=== PATIENT | female | born 1960 | race Caucasian/White ===

== ENCOUNTER 2017-02-02 20:08 | Emergency (ER) | payer MEDICAID, OTHER ==
[~2017-02-02] VITALS: Ht 167.6 cm; Wt 77.5 kg
[~2017-02-02 20:08] MED LIST: DIPH25CA6; HYDR2TAB3
[2017-02-02 20:59] VITALS: Ht 167.6 cm; Wt 77.5 kg
--- NOTE | 2017-02-02 22:39 | ERA ---
ER Documentation Chief Complaint Date/Time DATE: 02/02/17 TIME: 22:39 Chief Complaint L flank pain hx of kidney stones HPI The patient is a 56-year-old female, presenting with intermittent left flank pain for the last 2 months, worse tonight, the pain is 8/10, no aggravating or relieving factors. She has already went to the ER 3 times for the last 2 months. She is awaiting to see the urologist Dr. Mendiola on March 08. She denies fever, chills, neck pain, chest pain, nausea, vomiting , dyspnea, dysuria, diarrhea, constipation. She does smokes and drinks socially Past medical history: History of kidney stone, hypothyroidism Past surgical history: Appendectomy, left ovarian cyst, cholecystectomy, left ureteral stones retrieval ROS All systems reviewed and are negative except as per history of present illness. Medications Home Meds Active Scripts Hydrocodone/Acetaminophen ([place] 5-325 Tablet) 1 Each Tablet, 1 EACH PO Q6, #10 TAB Prov:NONA BRUSH MD 02/03/17 Reported Medications Diphenhydramine Hcl (Benadryl) 25 Mg Cap 01/19/10 Hydromorphone Hcl* (Hydromorphone Hcl*) 2 Mg Tablet 01/19/10 Allergies Allergies: Coded Allergies: No Known Allergies (Verified Allergy, Mild, 01/19/10) PMhx/Soc History of Surgery: No Hx Neurological Disorder: No Hx Respiratory Disorders: No Hx Cardiac Disorders: No Hx Miscellaneous Medical Probl: Yes (KIDNEY STONES. HYPER/ HYPOTHYROIDISM) Hx Alcohol Use: No Hx Substance Use: No Hx Tobacco Use: No Smoking Status: Never smoker Physical Exam Vitals Vital Signs Date Time Temp Pulse Resp B/P Pulse Ox O2 Delivery O2 Flow Rate FiO2 02/03/17 01:48 98.6 60 16 114/71 99 Room Air 02/02/17 20:59 99.1 75 24 122/77 98 Physical Exam Const: No acute distress. Head: Atraumatic. Eyes: Normal Conjunctiva. ENT: Normal External Ears, Nose and Mouth. Neck: Full range of motion. No meningismus. Resp: Clear to auscultation bilaterally. Cardio: Regular rate and rhythm, no murmurs. Abd: Soft, non distended, normal bowel sounds, mild left flank and left CVA tenderness, no rigidity, rebound tenderness Skin: No petechiae or rashes. Back: No midline or flank tenderness. Ext: No cyanosis, or edema. Neur: Awake and alert. No focal deficit Psych: Normal Mood and Affect. Result Diagram: 02/02/171 02/02/17 2311 Results 24 hrs Laboratory Tests Test 02/02/17 23:11 02/02/17 23:18 White Blood Count 6.110^3/ul Red Blood Count 5.0110^6/ul Hemoglobin 14.2g/dl Hematocrit 42.5% Mean Corpuscular Volume 84.8fl Mean Corpuscular Hemoglobin 28.3pg Mean Corpuscular Hemoglobin Concent 33.4g/dl Red Cell Distribution Width 13.9% Platelet Count 17814^3/UL Mean Platelet Volume 10.2fl Neutrophils % 39.4% Lymphocytes % 47.5% Monocytes % 7.9% Eosinophils % 3.8% Basophils % 1.1% Nucleated Red Blood Cells % 0.0/100WBC Neutrophils # 2.410^3/ul Lymphocytes # 2.910^3/ul Monocytes # 0.510^3/ul Eosinophils # 0.210^3/ul Basophils # 0.110^3/ul Nucleated Red Blood Cells # 0.010^3/ul Sodium Level 141mmol/L Potassium Level 4.0mmol/L Chloride Level 105mmol/L Carbon Dioxide Level 28mmol/L Anion Gap 12 Blood Urea Nitrogen 14mg/dl Creatinine 0.64mg/dl Glucose Level 104mg/dl Calcium Level 9.8mg/dl Total Bilirubin 0.1mg/dl Direct Bilirubin 0.00mg/dl Indirect Bilirubin 0.1mg/dl Aspartate Amino Transf (AST/SGOT) 37IU/L Alanine Aminotransferase (ALT/SGPT) 45IU/L Alkaline Phosphatase 125IU/L Total Protein 7.8g/dl Albumin 4.6g/dl Globulin 3.20g/dl Albumin/Globulin Ratio 1.43 Lipase 322U/L Bedside Urine pH (LAB) 5.5 Bedside Urine Protein (LAB) Negative Bedside Urine Glucose (UA) Negative Bedside Urine Ketones (LAB) Negative Bedside Urine Blood Negative Bedside Urine Nitrite (LAB) Negative Bedside Urine Leukocyte Esterase (L Negative Current Medications Medications (Trade) Dose Ordered Sig/Serjio Route PRN Reason Start Time Stop Time Status Last Admin Dose Admin Sodium Chloride 1,000 ml @ 1,000 mls/hr Q1H STAT IV 02/02/17 22:49 02/02/17 23:48 DC 02/02/17 23:43 Sodium Chloride (NS) 1,000 ml @ 1,000 mls/hr Q1H ONCE IV 02/02/17 23:00 02/02/17 23:59 DC 02/02/17 23:43 Ketorolac Tromethamine (Toradol) 30 mg ONCE STAT IV 02/02/17 22:49 02/02/17 22:51 DC 02/02/17 23:43 Morphine Sulfate (morphine) 2 mg ONCE ONCE IV 02/02/17 23:00 02/02/17 23:01 DC 02/02/17 23:27 Ondansetron HCl (Zofran Inj) 4 mg ONCE STAT IV 02/02/17 22:49 02/02/17 22:51 DC 02/02/17 23:21 Morphine Sulfate (morphine) 4 mg ONCE STAT IV 02/03/17 01:23 02/03/17 01:24 DC 02/03/17 01:27 Ondansetron HCl (Zofran Inj) 4 mg ONCE STAT IV 02/03/17 01:23 02/03/17 01:24 DC 02/03/17 01:27 Procedures/[place] [address] Radiology Main Line: [phone] DIAGNOSTIC IMAGING REPORT Patient: RAO MALDONADO : 1960 Age: 56 Sex: F MR #: [id number] DOS: 02/02/17 2249 Ordering MD: NONA BRUSH MD Location: [facility] Room/Bed: PROCEDURE: CT Abdomen and pelvis without contrast. CLINICAL INDICATION: Abdominal pain. TECHNIQUE: CT scan of the abdomen and pelvis was performed on a multi- detector high-resolution CT scanner. Contiguous axial images were obtained from the lung bases to the ischial tuberosities without intravenous contrast. Coronal and sagittal reformatted images were also obtained. Images were reviewed on the PACS workstation. One or more of the following dose reduction techniques were used: - Automated exposure control. - Adjustment of the mA and/or kV according to patient size. - Use of iterative reconstruction technique. Exam CTD/vol = 16.11 mGy. Total exam DLP = 950.28 mGy-cm. COMPARISON: None. FINDINGS: Evaluation of the lung bases demonstrates mild bibasilar atelectasis. Abdomen: The liver is normal in size. There is no focal mass or dilatation of the biliary tree. The patient is status post cholecystectomy. The spleen, pancreas and bilateral adrenal glands are within normal limits. Bilateral kidneys are normal in size with no contour deforming mass identified. There are multiple 1-2 mm renal calculi bilaterally. There is no radiopaque ureteral calculus identified. There is no hydronephrosis or hydroureter. There is no retroperitoneal adenopathy. The abdominal aorta is of normal caliber with mild scattered atherosclerotic calcifications. There is a small infraumbilical hernia containing fat. There is no bowel obstruction or free air. The appendix is not visualized. There is no diverticulosis or diverticulitis. There is no ascites. Pelvis: The bladder is unremarkable. The uterus and adnexa are within normal limits. There is no significant pelvic adenopathy or free fluid. Evaluation of the osseous structures demonstrates no suspicious lytic or blastic lesion. IMPRESSION: No acute abnormality identified within the abdomen and pelvis. Bilateral nonobstructing renal calculi. Status post cholecystectomy. Mild vascular calcifications reflective of atherosclerosis. Small infraumbilical hernia containing fat. .Eloy Thorne MD, MD Date Time Electronically viewed and signed by .Eloy Thorne MD, on 02/03/2017 00:45 .T/ CC: NONA BRUSH MD MEDICAL MAKING DECISION: The patient is a 56-year-old female, presenting with acute abdominal pain, most likely due to renal colic. She was treated with 1 L normal saline for clinical dehydration, Toradol 30 mg IV, morphine 2 mg IV and morphine 4 mg IV for pain and Zofran formula IV 2 for nausea with good response The differential diagnoses considered include but are not limited to cholelithiasis, cholecystitis, cystitis, pancreatitis, hepatitis, gastritis, peptic ulcer disease, gastric ulcer, appendicitis, diverticulitis, cholangitis, choledocholithiasis, partial small bowel obstruction. Departure Diagnosis: Primary Impression: Abdominal pain Additional Impression: Renal colic on left side Condition: Good Comments She was discharged with [place] and advised to follow-up with her urologist in 1- 2 days, sooner if needed and return if any concern NONA BRUSH MD Feb 02, 2017 22:39
[2017-02-02] MEDS ORDERED: SOD CHLORIDE 0.9% 1,000 ML IV STA (22:49)
[2017-02-02] MEDS ORDERED: ONDANSETRON 4 MG INJ IV STA (22:49)
[2017-02-02] MEDS ORDERED: KETOROLAC 30 MG INJ IV STA (22:49)
[2017-02-02] MEDS ORDERED: morphine 2 MG INJ IV ONE (23:00)
[2017-02-02] MEDS ORDERED: SOD CHLORIDE 0.9% 1,000 ML IV ONE (23:00)
[2017-02-02 23:17] LABS: URINE BLOOD (Dip) POC Negative (NEGATIVE)
[2017-02-02 23:24] LABS: ADD SCAN DIFF NO
[2017-02-02 23:28] LABS: BASOPHIL # 0.1 10^3/ul (0.0-0.1); BASOPHILS % 1.1 % (0.0-2.0); EOSINOPHILS # 0.2 10^3/ul (0.0-0.5); EOSINOPHILS % 3.8 % (0.0-7.0); HEMATOCRIT 42.5 % (37.0-47.0); HEMOGLOBIN 14.2 g/dl (12.0-16.0); LYMPHOCYTES # 2.9 10^3/ul (0.8-2.9); LYMPHOCYTES % 47.5 % (15.0-51.0); MEAN CORPUSCULAR HEMOGLOBIN 28.3 pg (29.0-33.0); MEAN CORPUSCULAR HGB CONC 33.4 g/dl (32.0-37.0); MEAN CORPUSCULAR VOLUME 84.8 fl (82.0-101.0); MEAN PLATELET VOLUME 10.2 fl (7.4-10.4); MONOCYTE # 0.5 10^3/ul (0.3-0.9); MONOCYTES % 7.9 % (0.0-11.0); NEUTROPHIL # 2.4 10^3/ul (1.6-7.5); NEUTROPHILS % 39.4 % (39.0-77.0); PLATELET COUNT 366 10^3/UL (140-415); RED BLOOD COUNT 5.01 10^6/ul (4.20-5.40); RED CELL DISTRIBUTION WIDTH 13.9 % (11.5-14.5); WHITE BLOOD COUNT 6.1 10^3/ul (4.8-10.8)
[2017-02-03 00:03] LABS: ALBUMIN 4.6 g/dl (3.3-4.9); ALBUMIN/GLOBULIN RATIO 1.43; BILIRUBIN,INDIRECT 0.1 mg/dl (0-1.1); BILIRUBIN,TOTAL 0.1 mg/dl (0.2-1.3); CALCIUM 9.8 mg/dl (8.4-10.2); CREATININE 0.64 mg/dl (0.44-1.00); TOTAL PROTEIN 7.8 g/dl (6.1-8.1)
--- NOTE | 2017-02-03 00:45 | RADRPT ---
PROCEDURE: CT Abdomen and pelvis without contrast. CLINICAL INDICATION: Abdominal pain. TECHNIQUE: CT scan of the abdomen and pelvis was performed on a multi-detector high-resolution CT scanner. Contiguous axial images were obtained from the lung bases to the ischial tuberosities wit hout intravenous contrast. Coronal and sagittal reformatted images were also obtained. Images were reviewed on the PACS workstation. One or more of the following dose reduction techniques were used: - Automated exposure control. - Adjustment of the mA and/or kV according to patient size. - Use of iterative reconstruction technique. Exam CTD/vol = 16.11 mGy. Total exam DLP = 950.28 mGy-cm. COMPARISON: None. FINDINGS: Evaluation of the lung bases demonstrates mild bibasilar atelectasis. Abdomen: The liver is normal in size. There is no focal mass or dilatation of the biliary tree. T he patient is status post cholecystectomy. The spleen, pancreas and bilateral adrenal glands are wi thin normal limits. Bilateral kidneys are normal in size with no contour deforming mass identified. There are multiple 1-2 mm renal calculi bilaterally. There is no radiopaque ureteral calculus arielle ntified. There is no hydronephrosis or hydroureter. There is no retroperitoneal adenopathy. The a bdominal aorta is of normal caliber with mild scattered atherosclerotic calcifications. There is a small infraumbilical hernia containing fat. There is no bowel obstruction or free air. The appendix is not visualized. There is no diverticulosis or diverticulitis. There is no ascites. Pelvis: The bladder is unremarkable. The uterus and adnexa are within normal limits. There is no significant pelvic adenopathy or free fluid. Evaluation of the osseous structures demonstrates no suspicious lytic or blastic lesion. IMPRESSION: No acute abnormality identified within the abdomen and pelvis. Bilateral nonobstructing renal calculi. Status post cholecystectomy. Mild vascular calcifications reflective of atherosclerosis. Small infraumbilical hernia containing fat. .Eloy Thorne MD, MD Date Time Electronically viewed and signed by .Eloy Thorne MD, MD on 02/03/2017 00:45 .T/
[2017-02-03] MEDS ORDERED: HYDR-906 PO (01:07)
[2017-02-03] MEDS ORDERED: morphine 4 MG/ML VIAL IV STA (01:23)
[2017-02-03] MEDS ORDERED: ONDANSETRON 4 MG INJ IV STA (01:23)
[2017-02-03 01:48] VITALS: BP 114/71; PULSE 60; RESP 16; TEMP 98.6
== END 2017-02-03 01:49 | disposition home or self-care (01) ==
LOC: FTE 20:08
DX: N23 Unspecified renal colic (principal); E03.9 Hypothyroidism, unspecified
CPT/HCPCS: 74176; 80053; 81003; 83690; 85025; J1885; J2270; J2405; J7030; 36415; 96374; 96375; 96376

== ENCOUNTER 2017-02-21 08:56 | Day surgery (SDC) | payer OTHER ==
[~2017-02-21] VITALS: Ht 160 cm; Wt 78.0 kg
[~2017-02-21 08:56] MED LIST changes: +HYDR-906 PO
[2017-02-21] MEDS ORDERED: LEVO88TA42 PO (09:21)
--- NOTE | 2017-02-21 09:40 | RADRPT ---
PROCEDURE: Chest Radiograph. CLINICAL INDICATION: Preop TECHNIQUE: Single frontal chest radiograph. COMPARISON: None available FINDINGS: The cardiomediastinal silhouette is within normal limits. No infiltrate or effusion is seen. Th e bones are intact. IMPRESSION: 1. Unremarkable chest radiograph. RPTAT: KK .Jose Mack MD, MD Date Time Electronically viewed and signed by .Jose Mack MD, on 02/21/2017 09:39 .B/
[2017-02-21 10:07] VITALS: Ht 160 cm; Wt 78.0 kg
[2017-02-21 10:16] LABS: ADD SCAN DIFF NO
[2017-02-21 10:17] VITALS: BP 108/69; PULSE 68; RESP 16
[2017-02-21 10:21] LABS: BASOPHIL # 0.1 10^3/ul (0.0-0.1); BASOPHILS % 1.1 % (0.0-2.0); EOSINOPHILS # 0.2 10^3/ul (0.0-0.5); EOSINOPHILS % 3.5 % (0.0-7.0); HEMATOCRIT 40.8 % (37.0-47.0); HEMOGLOBIN 13.4 g/dl (12.0-16.0); LYMPHOCYTES # 1.9 10^3/ul (0.8-2.9); LYMPHOCYTES % 41.4 % (15.0-51.0); MEAN CORPUSCULAR HGB CONC 32.8 g/dl (32.0-37.0); MEAN CORPUSCULAR VOLUME 85.4 fl (82.0-101.0); MEAN PLATELET VOLUME 10.6 fl (7.4-10.4); MONOCYTE # 0.4 10^3/ul (0.3-0.9); MONOCYTES % 8.7 % (0.0-11.0); NEUTROPHIL # 2.1 10^3/ul (1.6-7.5); NEUTROPHILS % 44.9 % (39.0-77.0); PLATELET COUNT 324 10^3/UL (140-415); RED BLOOD COUNT 4.78 10^6/ul (4.20-5.40); RED CELL DISTRIBUTION WIDTH 13.4 % (11.5-14.5); WHITE BLOOD COUNT 4.6 10^3/ul (4.8-10.8)
[2017-02-21 10:39] LABS: ALBUMIN 4.3 g/dl (3.3-4.9); ALBUMIN/GLOBULIN RATIO 1.53; BILIRUBIN,INDIRECT 0.1 mg/dl (0-1.1); BILIRUBIN,TOTAL 0.1 mg/dl (0.2-1.3); CALCIUM 9.7 mg/dl (8.4-10.2); CREATININE 0.64 mg/dl (0.44-1.00); POTASSIUM 4.2 mmol/L (3.5-5.1); TOTAL PROTEIN 7.1 g/dl (6.1-8.1)
[2017-02-21 10:41] LABS: INR 0.86; PROTIME 11.7 Sec (12.2-14.2); PT RATIO 0.9
[2017-02-21 10:42] LABS: PARTIAL THROMBOPLASTIN TIME 27.5 Sec (25.0-35.0)
[2017-02-21] MEDS ORDERED: PROPOFOL 20 ML ONE (12:31)
[2017-02-21] MEDS ORDERED: FENTAnyl 50 MCG/ML VIAL ONE (12:32)
[2017-02-21] MEDS ORDERED: MIDAZOLAM 1 MG/ML 2 ML INJ ONE (12:32)
--- NOTE | 2017-02-21 13:38 | HP ---
DATE OF ADMISSION: 02/21/2017 HISTORY OF PRESENT ILLNESS: Estrella Kennedy is a 56-year-old female who presents today for left r etrograde pyelogram, possible left ureteroscopy, ureteroscopic stone extraction with endoscopic farideh ium laser lithotripsy and insertion of left ureteral stent. The patient has been noted to be having debilitating left renal colic. On 12/06/2016, she had a CT scan with intravenous contrast, demonst rating normal upper tracts. Two weeks later on 12/2013, without contrast, she was noted to have mil d left hydronephrosis secondary to a punctate stone in the mid to distal ureter and on review, this was additionally noted on the first CT scan in her proximal ureter. Due to persistence of pain, she then had a third CT scan on 01/04/2017, which did not demonstrate any stone. In light of the patie nt having a large amount of unremitting pain, she now presents for cystoscopy, left retrograde pyelo gram, possible left ureteroscopy, possible removal of stone with endoscopic holmium laser lithotrips y and insertion of stent. In addition, the patient has had urinary tract infections. Follow up uri nary cultures no significant growth. PAST MEDICAL HISTORY: Recurrent urinary tract infections, nephrolithiasis. SOCIAL HISTORY: The patient is a light smoker, which she started in 1989. PHYSICAL EXAMINATION: VITAL SIGNS: Stable, afebrile. LUNGS: Equal breath sounds bilaterally. HEART: Regular rate and rhythm. ABDOMEN: Positive left-sided abdominal pain. Left CVA tenderness. IMPRESSION: Left in renal colic, rule out persistence of ureteral stone with a patient who has unre mitting pain. PLAN: Cystoscopy, left retrograde pyelogram, possible left ureteroscopy, ureteroscopic stone extrac tion with endoscopic holmium laser lithotripsy and insertion of stent. How the procedure is perform ed as well as potential complications and the potential that her renal colic and abdominal pain/back pain is not the result of a stone and that no stone may be found today was reviewed on multiple occ asions. The patient would like to proceed as she is having a large amount of pain and feels that th e pain is a result of her stone. She in addition understands that the procedure in of itself and th at a stent can cause an increase or more pain. She understands that the stent must be removed in a 3-month period of time, so as to avoid encrustation. The potential complications including but not limited to perforation, extravasation, infection, bleeding, secondary procedure, anesthetic risks in cluding, but not limited to, DVT, PE, PR and stroke were all reviewed. I feel the patient is well i nformed and would like to proceed. All questions have been answered on multiple occasions. Dictated By: GREGORIA GREENFIELD/NTS Conf#: [id number] DID#: [id number]
[2017-02-21] MEDS ORDERED: PHENYLephrine (100 MCG/ML) 5ML SYG ONE (13:42)
[2017-02-21] MEDS ORDERED: CEFAZOLIN 1 GM INJ ONE (13:42)
[2017-02-21] MEDS ORDERED: IOHEXOL 300MG/ML 30 ML BTL ONE (13:43)
[2017-02-21] MEDS ORDERED: KETOROLAC 30 MG INJ ONE (13:44)
[2017-02-21] MEDS ORDERED: DEXAMETHASONE 4 MG/ML 1 ML INJ ONE (13:44)
[2017-02-21] MEDS ORDERED: ONDANSETRON 4 MG INJ ONE (13:44)
[2017-02-21] MEDS ORDERED: METOCLOPRAMIDE 10 MG INJ ONE (13:44)
[2017-02-21] MEDS ORDERED: IOHEXOL 300MG/ML 30 ML BTL INJ ONE (13:48)
[2017-02-21 14:25] VITALS: PULSE 68; RESP 17
--- NOTE | 2017-02-21 14:27 | PDOCDIS ---
Discharge Instructions CONDITION Patient Condition: Good HOME CARE INSTRUCTIONS: Diet Instructions: Regular ACTIVITY: Activity Restrictions: Slowly Increase Activity FOLLOW UP/APPOINTMENTS Appointments Sunday for removal of stnet, patient to call office to confirm time OTHER ORDERS: Other Orders: dc to home when awake and stable, does not need to void prior to discharge SCHOOL/WORK RELEASE May return to School/Work on: March 05, 2017 GREGORIA CABRALES February 21, 2017 14:27
[2017-02-21] MEDS ORDERED: morphine (1 MG/ML) 10ML SYRINGE IV PRN ×3 (14:30)
[2017-02-21] MEDS ORDERED: DIPHENHYDRAMINE 50 MG INJ IV PRN (14:30)
[2017-02-21] MEDS ORDERED: MEPERIDINE 25 MG INJ IV PRN (14:30)
[2017-02-21] MEDS ORDERED: hydrALAzine 20 MG INJ IV PRN (14:30)
[2017-02-21] MEDS ORDERED: OXYCODONE/ACETAMINOPHEN (5/325) TAB PO PRN (14:30)
[2017-02-21] MEDS ORDERED: METOCLOPRAMIDE 10 MG INJ IV PRN (14:30)
[2017-02-21] MEDS ORDERED: EPHEDrine SULFATE 50 MG/5 ML SYG IV PRN (14:30)
[2017-02-21] MEDS ORDERED: LABETALOL HCL 20MG INJ IV PRN (14:30)
[2017-02-21] MEDS ORDERED: ONDANSETRON 4 MG INJ IV PRN (14:30)
[2017-02-21] MEDS ORDERED: HYDROmorphONE (0.2 MG/ML) 10ML SYG IV PRN ×3 (14:30)
[2017-02-21 14:38] VITALS: BP 109/69; PULSE 66; RESP 15
[2017-02-21 14:40] VITALS: PULSE 64; RESP 13
--- NOTE | 2017-02-21 14:42 | RADRPT ---
PROCEDURE: Intraoperative imaging of the abdomen and pelvis with fluoroscopy. CLINICAL INDICATION: Abdominal pain. Intraoperative. TECHNIQUE: 6 images of the abdomen and pelvis were obtained in the operating room with an image in tensifier. No radiologist was in attendance. 23 seconds of fluoroscopy time was used. COMPARISON: CT scan of the abdomen and pelvis dated 02/02/2017 which demonstrated small bilateral nonobstructing renal calculi. FINDINGS: Images demonstrate placement of a left ureteral double pigtail stent in satisfactory position. IMPRESSION: 1. Satisfactory intraoperative imaging of the abdomen and pelvis. RPTAT: QQ .Luther Dacosta MD, Date Time Electronically viewed and signed by .Luther Dacosta MD, on 02/21/2017 14:42 .R/
[2017-02-21 14:43] VITALS: BP 113/64; PULSE 64; RESP 12
--- NOTE | 2017-02-21 14:49 | OPR ---
DATE OF OPERATION: 02/21/2017 PREOPERATIVE DIAGNOSIS: Left hydroureteronephrosis, left ureteral stone. POSTOPERATIVE DIAGNOSIS: Left hydroureteronephrosis. SURGEON: Franki Hinojosa MD ANESTHESIA: General. OPERATION PERFORMED: Cystoscopy, left retrograde pyelogram, ureteroscopy, insertion left ureteral s tent. COMPLICATIONS: None. BRIEF HISTORY: Estrella Kennedy is a 56-year-old female with unremitting left renal colic, status post 3 CT scans, the original CT scan had concern for a punctate stone in the proximal ureter and a subsequent CT scan noted for a mid ureteral punctate stone. Followup CT scan did not demonstrate an y definitive point of obstruction. The patient has been having unremitting long-term renal colic th us, requesting diagnostic and potential removal of stone. DESCRIPTION OF PROCEDURE: The patient was brought into the operating room and placed on the operati ng room table in supine lithotomy position. She was prepped and draped in the usual fashion after a nesthesia was induced. A timeout was undertaken. Appropriate pressure points were padded and she r eceived preoperative antibiotic therapy. Sequential compression devices were applied. Radiographic precautions were additionally utilized. A KUB with obliques was obtained which did not demonstrate any abnormalities. Normal bony structures were noted as well as a normal bowel gas pattern. Rigid cystoscopy was undertaken with a 12-degree, 30-degree and 70-degree angle lens. No abnormalities o f the urethra could be appreciated. Bladder was inspected in a systematic fashion. No foreign body , bladder stone or tumor could be appreciated. Left retrograde pyelogram was undertaken utilizing a 5-Ethiopian open-ended catheter demonstrating hydroureteronephrosis. There is dilatation of the urete r down to the level of the ureterovesical junction and dilation of the renal pelvis and calices with retention of contrast within the calices. Due to the above findings and the patient's unremitting pain, it was decided to undertake ureteroscopy without noted difficulty. After a 0.35 Amplatz wire was placed up to the level of the renal pelvis, ureteroscopy was easily performed. The ureteroscope was inserted into the distal ureter. There was no stone at the level of the ureterovesical junction . The ureter was noted to be dilated, which will easily allow for passage of the ureteroscope up to the level of the renal pelvis. At no point was there a stricture, tumor or stone. The ureter was evaluated in antegrade and retrograde fashion. Due to concern of edema, it was decided to insert a stent. A 24 cm 6-Ethiopian double-J ureteral stent was then inserted with the proximal aspect coiling within the renal pelvis and the distal aspect coiling within the bladder. Attached to the distal e nd was a tapered string. Proper positioning was confirmed with direct vision, fluoroscopy and a KUB . At this point, cloudy urine was noted to protrude from the ureteral stent and thus, a urine cultu re was obtained. She did receive preoperative antibiotic therapy and she will be sent to home on Ba ctrim-DS 1 tab p.o. b.i.d. for a 7-day period of time. Additionally, she was written for a prescrip tion of Pyridium 100 mg p.o. t.i.d. p.r.n., dispense #30, no refill, and [place] 5/325 one to 2 tab p. o. q.6h. p.r.n., dispense #40, no refill. She will follow up next week for cystoscopy, stent remova l. Should her pain persist, non-urologic causes will need to be entertained. Dictated By: FRANKI GREENFIELD/JIM Conf#: [id number] DID#: [id number]
[2017-02-21 15:41] VITALS: BP 105/59; PULSE 63; RESP 14
--- NOTE | 2017-02-21 20:38 | RADRPT ---
Vent Rate: 69 bpm RR Interval: 0 msec CA Interval: 180 msec QRS Duration: 84 msec QT Interval: 390 msec QTC Interval: 417 msec P-R-T [place]: 52 - 46 - 52 degrees Normal sinus rhythm Cannot rule out Anterior infarct , age undetermined Abnormal ECG Electronically Signed By: Brian Galdamez [id number]
== END 2017-02-21 16:00 | disposition home or self-care (01) ==
LOC: SDS 08:56
PROVIDERS: ATTEND Urology
DX: N13.30 Unspecified hydronephrosis (principal); F17.200 Nicotine dependence, unspecified, uncomplicated; E03.9 Hypothyroidism, unspecified; Z87.440 Personal history of urinary (tract) infections
CPT/HCPCS: 52332; 71010; 74420; 80053; 85025; 85610; 85651; 85730; 87086; 93005; C2617; J0690; J1100; J1885; J2175; J2250; J2370; J2405; J2765; J3010; Q9967